=== PATIENT | female | born 1995 | race Two or more races ===

== ENCOUNTER 2020-08-31 12:34 | Outpatient (REF) | payer OTHER, SELFPAY | END 2020-08-31 12:35 | disposition home or self-care (01) | LOC: HO.LAB 12:34 | PROVIDERS: Visit Provider Internal Medicine | DX: Z20.822 Contact with and (suspected) exposure to COVID-19 (principal) | CPT/HCPCS: 36415; C9803; U0003; U0005 ==

== ENCOUNTER 2020-11-20 09:47 | Outpatient (REF) | payer OTHER, SELFPAY | END 2020-11-20 09:48 | disposition home or self-care (01) | LOC: HO.LAB 09:47 | PROVIDERS: Visit Provider Internal Medicine | DX: Z20.822 Contact with and (suspected) exposure to COVID-19 (principal) | CPT/HCPCS: C9803; U0003; U0005 ==